=== PATIENT | female | born 1950 | race Caucasian/White ===

== ENCOUNTER → 2020-07-01 11:14 | Outpatient (CLI) | payer MEDICARE, OTHER, SELFPAY ==
[2020-07-03 12:09] LABS: COVID19 Sendout Not Detected (Not Detect)
== END ==
PROVIDERS: Family Provider Internal Medicine; PCP Internal Medicine; Visit Provider Physician Assistant
DX: Z11.59 Encounter for screening for other viral diseases (principal)
CPT/HCPCS: 87635

== ENCOUNTER 2020-07-04 11:28 | Day surgery (SDC) | payer MEDICARE, OTHER, SELFPAY ==
[2020-07-04] VITALS (7 sets, daily range): BP systolic 99–124; BP diastolic 66–77; PULSE 64–82; RESP 10–16; TEMP 36.3–36.4; O2SAT 92–100; BMI 27.8
--- NOTE | 2020-07-04 | PATH_ITS ---
[facility] Accession Number: [id number] . 01 Material submitted: . gastrointestinal site - GASTRIC . 01 Clinical history: . A: RULE OUT HP GASTRIC BIOPSY . 02 Diagnosis: Stomach, Biopsies: Antral and body mucosa with no diagnostic abnormality. No evidence of Helicobacter organisms on H/E stain. Negative for intestinal metaplasia. Negative for dysplasia and malignancy. [facility] 07/06/2020 1049 Local . 02 Electronically signed: . Arnav Boss MD, PhD, Pathologist NPI- [id number] . 01 Gross description: . Received in formalin, labeled rule out HP gastric biopsy, and consists of two rosas fragments of soft tissue measuring 0.5 x 0.3 x 0.2 cm in aggregate. The specimen is entirely submitted in cassette A1. ([id number]) /[facility] 07/05/2020 1059 Local . 02 Pathologist provided ICD-10: R10.13 . 02 CPT . 734876 Performed at: 01 [facility] [address], [place], [place] [id number] MD Da Woodard MD Phone: [phone] Performed at: 02 [facility] [address] [place], [place] [id number] MD Tanya Andrade MD Phone: [phone]
[2020-07-04] MEDS: SODIUM CHLORIDE 0.9% 1,000 ML 42 ML IV (12:03)
--- NOTE | 2020-07-04 12:48 | PM.HP.1 ---
History of Present Illness History of Present Illness Date Patient Seen: 07/04/20 Chief complaint: COLONOSCOPY & EGD Narrative: Dysphagia and colorectal cancer screening Patient History Family & Social History Social History: household members spouse Tobacco & Substance use: Smoking Status Never smoker alcohol intake current alcohol intake frequency a few times a week Substance Use Type does not use Meds Home Medications and Allergies Home Medications Medication Instructions Recorded Confirmed Type aspirin #0 09/13/12 08/10/18 History Flaxseed Oil 1,000 mg PO Q DAY #0 07/12/13 History VITAMIN B COMPLEX 1 cap PO QDAY #0 cap 07/12/13 History omega-3 acid ethyl esters [Lovaza] 1 gm PO Q DAY #0 07/12/13 History pravastatin [Pravachol] 40 mg PO HS #0 tab 07/12/13 07/04/20 History Allergies Allergy/AdvReac Type Severity Reaction Status Date / Time No Known Allergies Allergy Uncoded 07/01/20 11:13 Exam Vital Signs (past 8 hours): - 07/04/20 11:46 Temperature 97.5 F L Pulse Rate 81 Respiratory Rate 16 Blood Pressure 114/71 Pulse Oximetry 99 Oxygen Delivery Method Room Air Narrative Exam Narrative: Oropharynx free of lesions Chest clear to auscultation percussion Cardiac exam reveals no S3 or murmur Assessment & Plan Assessment & Plan narrative: Dysphagia and need for colorectal cancer screening. EGD and colonoscopy to be performed. Risks, benefits, alternatives have been explained.
--- NOTE | 2020-07-04 12:49 | PM.OP.ENDO ---
Operative Date/Time/Diagnoses Date of procedure: 07/04/20 Pre-op diagnosis: See indication and findings Procedure & Clinicians Study performed: EGD and colonoscopy Same procedure as scheduled: Yes Indications: Dysphagia and need for colorectal cancer screening Surgeon: Aicha Ye Procedure Notes Procedure in detail: After informed consent was obtained the patient was placed in the left lateral decubitus position. The video upper scope was placed into the oropharynx with the patient's also called in the esophagus. The esophagus stomach and duodenum duodenum were carefully examined. On withdrawal, retroflexed view the GE junction was performed. The scope was removed. The patient tolerated procedure well. The colonoscope was then substituted and the patient turned. The scope was inserted into the rectum slowly advanced to cecum. Preparation was good. On slow withdrawal mucosa was carefully examined. The scope was removed. The patient tolerated procedure well. Blood loss none Complications none Sedation Total sedation time 27 minutes Versed 6 mg fentanyl 200 micro g Findings EGD 1. Distal esophagus with 8 mm ulceration on 1 aspect LA classification B. this was on top of a fairly wide-open Schatzki's ring. 2. Multiple small gastric erosions in the antrum biopsies taken to rule out Helicobacter 3. Normal duodenal bulb and sweep Colonoscopy 1. Normal colonoscopy to cecum For her dysphagia I would expect that her symptoms would improve his she was able to heal this ulceration. Therefore we will send in prescription of a proton pump inhibitor to her pharmacy to take once daily and see how she does over the next 2 months. She should have a telehealth return visit at that time. Colonoscopy should be repeated in 10 years
[2020-07-04] MEDS: fentaNYL 250 MCG/5 ML INJ IV (13:07)
[2020-07-04] MEDS: MIDAZOLAM 5 MG/5 ML VIAL IV (13:11)
== END 2020-07-04 14:10 | disposition home or self-care (01) ==
PROVIDERS: Family Provider Internal Medicine; PCP Internal Medicine; Referring Provider Internal Medicine; Visit Provider Internal Medicine Gastroenterology
PROC: 0DJ08ZZ Inspection of Upper Intestinal Tract, Via Natural or Artificial Opening Endoscopic (ICD-10-PCS; CPT 43235; principal; 2020-07-04 13:00)
PROC: 0DJD8ZZ Inspection of Lower Intestinal Tract, Via Natural or Artificial Opening Endoscopic (ICD-10-PCS; CPT 45378; 2020-07-04 13:00)
DX: Z12.11 Encounter for screening for malignant neoplasm of colon (principal); R13.10 Dysphagia, unspecified; K75.81 Nonalcoholic steatohepatitis (NASH); Z86.73 Personal history of transient ischemic attack (TIA), and cerebral infarction without residual deficits; Z85.72 Personal history of non-Hodgkin lymphomas; K22.10 Ulcer of esophagus without bleeding; K22.2 Esophageal obstruction
CPT/HCPCS: 43239; G0121; J2250; J3010

== ENCOUNTER → 2020-09-18 19:10 | Outpatient (ROUT) | payer MEDICARE, OTHER, SELFPAY ==
[2020-09-18 19:25] LABS: Add Manual Diff / Slide Review NO; Basophils Absolute Auto 0 /uL (0-100); Basophils Percent Auto 0.4 % (0-2); Eosinophils Absolute Auto 100 /uL (0-450); Eosinophils Percent Auto 1.6 % (2-4); Hemoglobin 14.7 g/dL (12.0-16.0); Lymphocytes Absolute Auto 2000 /uL (1100-4500); Lymphocytes Percent Auto 34.9 % (25-40); Mean Corpuscular HGB Conc 34.1 % (30-36); Mean Corpuscular Hemoglobin 29.7 PG (26-34); Mean Corpuscular Volume 86.8 fL (80-100); Monocytes Absolute Auto 300 /uL (0-900); Monocytes Percent Auto 5.9 % (3-14); Neutrophils Absolute Auto 3200 /uL (1500-7000); Neutrophils Percent Auto 57.2 % (50-75); Platelet Count 207 X10^3/uL (150-400); Red Blood Cell Count 4.95 X10^6/uL (4.0-5.2); Red Cell Distribution Width 13.3 % (11.6-14.8); White Blood Cell Count 5.6 X10^3/uL (4.5-11.0)
[2020-09-18 19:32] LABS: Alanine Aminotransferase 60 IU/L (<35); Albumin 4.7 g/dL (3.5-5.0); Albumin Globulin Ratio 1.6 (1.0-2.8); Alkaline Phosphatase 106 U/L (38-126); Aspartate Aminotransferase 36 IU/L (14-36); BUN Creatinine Ratio 18.9 (6-22); Bilirubin Total 1.1 mg/dL (0.2-1.3); Blood Urea Nitrogen 20 mg/dL (7-17); Calcium 10.4 mg/dL (8.4-10.2); Carbon Dioxide 32 mmol/L (22-32); Chloride 105 mmol/L (98-107); Cholesterol 237 mg/dL (140-199); Estimated Glomerular Filt Rate 51.4 mL/min (>60); Glucose 91 mg/dL (80-110); HDL Cholesterol 63 mg/dL (40-60); HEMOLYSIS < 15 (0-50); LDL Cholesterol Calculated 128 mg/dL (<100); Lactate Dehydrogenase 412 U/L (313-618); Potassium 4.6 mmol/L (3.4-5.1); Sodium 142 mmol/L (137-145); Total Protein 7.7 g/dL (6.3-8.2); Triglycerides 229 mg/dL (35-150)
[2020-09-18 20:03] LABS: TSH w/ Reflex to FT4 3.11 uIU/mL (0.47-4.68)
== END ==
PROVIDERS: Family Provider Internal Medicine; PCP Internal Medicine; Visit Provider Internal Medicine
DX: E03.9 Hypothyroidism, unspecified (principal); C85.19 Unspecified B-cell lymphoma, extranodal and solid organ sites; E78.2 Mixed hyperlipidemia
CPT/HCPCS: 80053; 80061; 83615; 84443; 85025

== ENCOUNTER → 2021-03-19 18:45 | Outpatient (ROUT) | payer MEDICARE, OTHER, SELFPAY ==
[2021-03-19 19:32] LABS: Aspartate Aminotransferase 41 IU/L (14-36); BUN Creatinine Ratio 21.9 (6-22); Blood Urea Nitrogen 23 mg/dL (7-17); Calcium 10.3 mg/dL (8.4-10.2); Carbon Dioxide 25 mmol/L (22-32); Chloride 106 mmol/L (98-107); Cholesterol 234 mg/dL (140-199); Estimated Glomerular Filt Rate 51.8 mL/min (>60); Glucose 96 mg/dL (80-110); HDL Cholesterol 82 mg/dL (40-60); HEMOLYSIS 19 (0-50); LDL Cholesterol Calculated 118 mg/dL (<100); Potassium 4.5 mmol/L (3.4-5.1); Sodium 142 mmol/L (137-145); Triglycerides 169 mg/dL (35-150)
[2021-03-19 20:04] LABS: TSH w/ Reflex to FT4 2.85 uIU/mL (0.47-4.68)
== END ==
PROVIDERS: Family Provider Internal Medicine; PCP Internal Medicine; Visit Provider Internal Medicine
DX: N18.30 Chronic kidney disease, stage 3 unspecified (principal); E78.2 Mixed hyperlipidemia; E03.9 Hypothyroidism, unspecified; C85.19 Unspecified B-cell lymphoma, extranodal and solid organ sites
CPT/HCPCS: 80048; 80061; 84443; 84450

== ENCOUNTER → 2021-10-01 14:46 | Outpatient (CLI) | payer MEDICARE, OTHER, SELFPAY ==
--- NOTE | 2021-10-01 14:48 | DI.RAD.S_ITS ---
PROCEDURE: XR DEXA AXIAL SKELETON INDICATIONS: Encounter for screening for osteoporosis COMPARISON: None. FINDINGS: This blank DEXA report has been sent in error by the PACS system. The correct and complete report will be forthcoming in 1-2 days. Thank you for your patience and understanding. Dictated by: Twyla Paiz MD, PhD on 10/01/2021 at 17:17 Approved by: Twyla Paiz MD, PhD on 10/01/2021 at 17:17
== END ==
PROVIDERS: Family Provider Internal Medicine; PCP Internal Medicine; Referring Provider Internal Medicine; Visit Provider Internal Medicine
DX: Z13.820 Encounter for screening for osteoporosis; M81.0 Age-related osteoporosis without current pathological fracture; Z78.0 Asymptomatic menopausal state
CPT/HCPCS: 77080

== ENCOUNTER → 2021-12-18 12:27 | Outpatient (CLI) | payer MEDICARE, OTHER, SELFPAY ==
[2021-12-18 13:07] LABS: COVID19 -Nasal RAPID Negative (Negative)
== END ==
PROVIDERS: Family Provider Internal Medicine; PCP Internal Medicine; Visit Provider Family Medicine Sleep Medicine
DX: Z20.822 Contact with and (suspected) exposure to COVID-19 (principal)
CPT/HCPCS: 87635

== ENCOUNTER 2021-12-18 12:55 | Day surgery (SDC) | payer MEDICARE, OTHER, SELFPAY ==
[2021-12-18 13:20] VITALS: BP 149/90; PULSE 60; RESP 12; TEMP 36.4; O2SAT 99; BMI 28.1
[2021-12-18] MEDS: SODIUM CHLORIDE 0.9% 1,000 ML 84 ML IV (13:43)
--- NOTE | 2021-12-18 13:50 | PM.PREOP ---
Pre-operative Note COVID-19 COVID-19 status: Negative Result date/Date tested (Pos, Neg/Pending): 12/18/21 Criteria for continued procedure: Expected advancement of disease process Interval Note History & Physical reviewed/Exam performed by Physician: Yes Changes to H&P: No ASA Class (for procedural sedation): II
--- NOTE | 2021-12-18 13:51 | PM.OP.EGD ---
Operative Date/Time/Diagnoses Date of procedure: 12/18/21 Pre-op diagnosis: See indication and findings Procedure & Clinicians Study performed: EGD Indications: Longstanding heartburn on medication with resolved symptoms need to check for complete healing of esophageal ulcer which if not healed will require significant changes in medication. Surgeon: Aicha Ye Procedure Notes Procedure in detail: After informed consent was obtained the patient was placed in left lateral decubitus position. The video upper scope placed into the oropharynx and with the patient's help swallowed into the esophagus. The esophagus stomach and duodenum were carefully examined. On withdrawal retroflexed view the GE junction was performed. The scope was removed. The patient tolerated procedure well. Blood loss none Complications none Sedation mac Findings 1. Completely normal esophagus with complete healing of the ulceration 2. Minimal patchy erythema in the pre-pyloric position previous biopsies negative 3. Normal duodenal bulb and sweep I think it is quite likely that Donna may need to be maintained on some degree of acid suppression but for now she can stop her Protonix and she can try going back on aspirin. At the slightest increase in heartburn symptoms however she should go back on her Protonix catatonic episodes he
[2021-12-18 14:41] VITALS: BP 128/89; PULSE 71; RESP 16; TEMP 36.1; O2SAT 96
[2021-12-18 14:46] VITALS: BP 117/78; PULSE 67; RESP 14; O2SAT 96
[2021-12-18 14:51] VITALS: BP 109/70; PULSE 74; RESP 16; O2SAT 98
[2021-12-18 14:56] VITALS: BP 133/83; PULSE 82; RESP 16; O2SAT 98
[2021-12-18 15:02] VITALS: BP 135/90; PULSE 66; RESP 16; O2SAT 98
== END 2021-12-18 15:24 | disposition home or self-care (01) ==
PROVIDERS: Family Provider Internal Medicine; PCP Internal Medicine; Referring Provider Internal Medicine Gastroenterology; Visit Provider Internal Medicine Gastroenterology
PROC: 0DJ08ZZ Inspection of Upper Intestinal Tract, Via Natural or Artificial Opening Endoscopic (ICD-10-PCS; CPT 43235; principal; 2021-12-18 14:30)
DX: R12 Heartburn (principal); Z20.822 Contact with and (suspected) exposure to COVID-19
CPT/HCPCS: 43235; 87635; C9803; J2704

== ENCOUNTER → 2022-02-25 13:35 | Outpatient (CLI) | payer MEDICARE, OTHER, SELFPAY ==
--- NOTE | 2022-02-25 | DI.US.S_ITS ---
PROCEDURE: US THYROID INDICATIONS: LOCALIZED SWELLING; MASS AND LUMP TECHNIQUE: Real-time scanning was performed of the thyroid gland, with image documentation. COMPARISON: [facility], US, THYROID, 02/19/2016, 16:26. FINDINGS: Right: Thyroid lobe measures 4.2 x 1.8 x 1.6 cm, and is homogeneous in echotexture. Left: Thyroid lobe measures 3.7 x 1.6 x 1.4 cm, and is homogenous in echotexture. Isthmus: 4.4 mm thick. Nodule number: 1 Location: Right superior Size: 0.9 x 0.6 x 0.5 cm; previously 0.7 x 0.6 x 0.5. Composition: Solid Echogenicity: Isoechoic Shape: wider than tall. Margins: Smooth Echogenic foci: Peripheral calcification Total points: 4 ACR TI-RADS category: 4 IMPRESSION: 1. Small right thyroid nodule with rim calcification, minimally increased in size. Recommend continue ultrasound follow-up. See enclosed follow-up recommendation. ACR TI-RADS definitions and recommendations: TI-RADS 1 (benign): 0 points. FNA not needed. TI-RADS 2 (not suspicious): 2 points. FNA not needed. TI-RADS 3 (mildly suspicious): 3 points. * FNA if 2.5 cm or larger, follow up if 1.5 cm or larger (at 1, 3, and 5 years). TI-RADS 4 (moderately suspicious): 4-6 points. * FNA if 1.5 cm or larger, follow up if 1 cm or larger (at 1, 2, 3, and 5 years). TI-RADS 5 (highly suspicious): 7 points or more. * FNA if 1 cm or larger, follow up if 0.5 cm or larger (every year for 5 years). Dictated by: Zhou Sotelo M.D. on 02/25/2022 at 17:11 Approved by: Zhou Sotelo M.D. on 02/25/2022 at 17:15
== END ==
PROVIDERS: Family Provider Internal Medicine; PCP Internal Medicine; Referring Provider Internal Medicine Hematology & Oncology; Visit Provider Internal Medicine Hematology & Oncology
DX: E04.1 Nontoxic single thyroid nodule (principal)
CPT/HCPCS: 76536

== ENCOUNTER → 2022-06-02 15:16 | Outpatient (CLI) | payer MEDICARE, OTHER, SELFPAY ==
[2022-06-02 16:19] LABS: Hematocrit 39.5 % (36-46); Hemoglobin 13.6 g/dL (12.0-16.0); Mean Corpuscular HGB Conc 34.5 % (30-36); Mean Corpuscular Hemoglobin 29.9 PG (26-34); Mean Corpuscular Volume 86.4 fL (80-100); Platelet Count 180 X10^3/uL (150-400); Red Blood Cell Count 4.57 X10^6/uL (4.0-5.2); White Blood Cell Count 3.9 X10^3/uL (4.5-11.0)
[2022-06-02 16:45] LABS: Alanine Aminotransferase 42 IU/L (<35); Albumin 4.4 g/dL (3.5-5.0); Albumin Globulin Ratio 1.8 (1.0-2.8); Alkaline Phosphatase 80 U/L (38-126); Aspartate Aminotransferase 41 IU/L (14-36); BUN Creatinine Ratio 14.9 (6-22); Bilirubin Total 1.4 mg/dL (0.2-1.3); Blood Urea Nitrogen 17 mg/dL (7-17); Calcium 9.5 mg/dL (8.4-10.2); Carbon Dioxide 28 mmol/L (22-32); Chloride 107 mmol/L (98-107); Cholesterol 182 mg/dL (140-199); Estimated Glomerular Filt Rate 51 mL/min (>60); Globulin 2.5 g/dL (1.7-4.1); Glucose 92 mg/dL (80-110); HDL Cholesterol 65 mg/dL (40-60); HEMOLYSIS < 15 (0-50); LDL Cholesterol Calculated 97 mg/dL (<100); Potassium 4.7 mmol/L (3.4-5.1); Sodium 139 mmol/L (137-145); Total Protein 6.9 g/dL (6.3-8.2); Triglycerides 98 mg/dL (35-150)
[2022-06-02 17:09] LABS: TSH w/ Reflex to FT4 1.61 uIU/mL (0.47-4.68)
[2022-06-03 06:29] LABS: Calcium 9.6 mg/dL (8.7-10.3); Parathyroid Hormone, Intact 53 pg/mL (15-65)
[2022-06-12 17:38] LABS: Vitamin D 25 Hydroxy (D3) 35.3 ng/mL (30.0-100.0)
== END ==
PROVIDERS: Family Provider Internal Medicine; PCP Internal Medicine; Referring Provider Internal Medicine; Visit Provider Internal Medicine
DX: I67.9 Cerebrovascular disease, unspecified (principal); N18.31 Chronic kidney disease, stage 3a; M81.0 Age-related osteoporosis without current pathological fracture
CPT/HCPCS: 36415; 80053; 80061; 82306; 82310; 83970; 84443; 85027

== ENCOUNTER → 2023-02-13 12:47 | Outpatient (CLI) | payer MEDICARE, OTHER, SELFPAY ==
[2023-02-13 14:23] LABS: Hematocrit 43.6 % (36-46); Hemoglobin 14.8 g/dL (12.0-16.0); Mean Corpuscular Hemoglobin 29.3 PG (26-34); Mean Corpuscular Volume 86.1 fL (80-100); Platelet Count 209 X10^3/uL (150-400); Red Blood Cell Count 5.06 X10^6/uL (4.0-5.2); Red Cell Distribution Width 13.4 % (11.6-14.8); White Blood Cell Count 4.8 X10^3/uL (4.5-11.0)
[2023-02-13 14:48] LABS: Alanine Aminotransferase 69 IU/L (<35); Albumin 4.7 g/dL (3.5-5.0); Albumin Globulin Ratio 1.4 (1.0-2.8); Alkaline Phosphatase 118 U/L (38-126); Aspartate Aminotransferase 44 IU/L (14-36); BUN Creatinine Ratio 17.6 (6-22); Bilirubin Total 1.3 mg/dL (0.2-1.3); Blood Urea Nitrogen 18 mg/dL (7-17); Calcium 10.1 mg/dL (8.4-10.2); Carbon Dioxide 30 mmol/L (22-32); Chloride 103 mmol/L (98-107); Cholesterol 242 mg/dL (140-199); Estimated Glomerular Filt Rate 58 mL/min (>60); Globulin 3.4 g/dL (1.7-4.1); Glucose 80 mg/dL (80-110); HDL Cholesterol 57 mg/dL (40-60); HEMOLYSIS < 15 (0-50); LDL Cholesterol Calculated 158 mg/dL (<100); Potassium 4.4 mmol/L (3.4-5.1); Sodium 140 mmol/L (137-145); Total Protein 8.1 g/dL (6.3-8.2); Triglycerides 134 mg/dL (35-150)
[2023-02-13 15:17] LABS: TSH w/ Reflex to FT4 3.07 uIU/mL (0.47-4.68)
== END ==
PROVIDERS: Family Provider Internal Medicine; PCP Internal Medicine; Referring Provider Internal Medicine; Visit Provider Internal Medicine
DX: E78.2 Mixed hyperlipidemia (principal); I67.9 Cerebrovascular disease, unspecified
CPT/HCPCS: 36415; 80053; 80061; 84443; 85027

== ENCOUNTER → 2023-03-04 11:21 | Outpatient (CLI) | payer MEDICARE, OTHER, SELFPAY ==
--- NOTE | 2023-03-04 11:23 | DI.US.S_ITS ---
PROCEDURE: US THYROID INDICATIONS: thyroid nodule TECHNIQUE: Real-time scanning was performed of the thyroid gland, with image documentation. COMPARISON: [facility], US, US THYROID, 02/25/2022, 14:44. FINDINGS: Right: Thyroid lobe measures 4.3 x 1.6 x 1.7 cm, and is homogeneous in echotexture. Left: Thyroid lobe measures 4.2 x 1.6 x 1.3 cm, and is homogenous in echotexture. Isthmus: 4 mm thick. Nodule number: 1 Location: Right lobe mid Size: 0.7 x 0.7 x 0.5 cm. Previously 0.9 x 0.6 x 0.5 cm Composition: Solid Echogenicity: Hypoechoic Shape: wider than tall. Margins: Smooth Echogenic foci: Peripheral calcification Total points: 6 ACR TI-RADS category: 4 Sonographic evaluation was performed of the patient indicated area of difficulty swallowing/pressure, at the left inferior neck superior to the clavicle. In this region there is a rounded structure measuring 0.9 x 2.0 x 1.4 cm, with appearance of an echogenic periphery and hypoechoic center. On some images it appears to have a reniform configuration. IMPRESSION: 1. Previously demonstrated sub cm nodule in the right lobe of the thyroid gland is not significantly changed and does not meet TI-RADS criteria for FNA or imaging follow-up. 2. Sonographic evaluation was performed of the patient indicated area of difficulty swallowing/pressure, at the left inferior neck superior to the clavicle. In this region there is a rounded structure measuring 0.9 x 2.0 x 1.4 cm, with appearance of an echogenic periphery and hypoechoic center. On some images it appears to have a reniform configuration. These are nonspecific findings. This structure could potentially represent an abnormal lymph node or other etiology or artifact. If additional imaging is desired CT of the neck may be helpful. ACR TI-RADS definitions and recommendations: TI-RADS 1 (benign): 0 points. FNA not needed. TI-RADS 2 (not suspicious): 2 points. FNA not needed. TI-RADS 3 (mildly suspicious): 3 points. * FNA if 2.5 cm or larger, follow up if 1.5 cm or larger (at 1, 3, and 5 years). TI-RADS 4 (moderately suspicious): 4-6 points. * FNA if 1.5 cm or larger, follow up if 1 cm or larger (at 1, 2, 3, and 5 years). TI-RADS 5 (highly suspicious): 7 points or more. * FNA if 1 cm or larger, follow up if 0.5 cm or larger (every year for 5 years). Dictated by: Imer Boo M.D. on 03/04/2023 at 16:35 Approved by: Imer Boo M.D. on 03/04/2023 at 16:42
== END ==
PROVIDERS: Family Provider Internal Medicine; PCP Internal Medicine; Referring Provider Internal Medicine; Visit Provider Internal Medicine
DX: E04.1 Nontoxic single thyroid nodule (principal)
CPT/HCPCS: 76536

== ENCOUNTER → 2024-02-08 11:02 | Outpatient (CLI) | payer MEDICARE, OTHER, SELFPAY ==
[2024-02-08 12:31] LABS: Add Manual Diff / Slide Review NO; Basophils Absolute Auto 0 /uL (0-100); Basophils Percent Auto 0.4 % (0-2); Eosinophils Absolute Auto 100 /uL (0-450); Hematocrit 43.1 % (36-46); Hemoglobin 14.3 g/dL (12.0-16.0); Lymphocytes Absolute Auto 1600 /uL (1100-4500); Lymphocytes Percent Auto 31.5 % (25-40); Mean Corpuscular HGB Conc 33.2 % (30-36); Mean Corpuscular Hemoglobin 29.4 PG (26-34); Mean Corpuscular Volume 88.4 fL (80-100); Monocytes Absolute Auto 500 /uL (0-900); Monocytes Percent Auto 10.2 % (3-14); Neutrophils Absolute Auto 2900 /uL (1500-7000); Neutrophils Percent Auto 56.9 % (50-75); Platelet Count 171 X10^3/uL (150-400); Red Blood Cell Count 4.87 X10^6/uL (4.0-5.2); Red Cell Distribution Width 13.7 % (11.6-14.8); White Blood Cell Count 5.2 X10^3/uL (4.5-11.0)
[2024-02-08 13:37] LABS: Alanine Aminotransferase 80 IU/L (<35); Albumin 4.8 g/dL (3.5-5.0); Albumin Globulin Ratio 1.5 (1.0-2.8); Alkaline Phosphatase 102 U/L (38-126); Aspartate Aminotransferase 50 IU/L (14-36); BUN Creatinine Ratio 16.7 (6-22); Bilirubin Total 1.1 mg/dL (0.2-1.3); Blood Urea Nitrogen 19 mg/dL (7-17); Calcium 9.4 mg/dL (8.4-10.2); Carbon Dioxide 27 mmol/L (22-32); Chloride 106 mmol/L (98-107); Cholesterol 222 mg/dL (140-199); Estimated Glomerular Filt Rate 51 mL/min (>60); Globulin 3.2 g/dL (1.7-4.1); Glucose 83 mg/dL (80-110); HDL Cholesterol 73 mg/dL (40-60); HEMOLYSIS < 15 (0-50); LDL Cholesterol Calculated 114 mg/dL (<100); Potassium 3.8 mmol/L (3.4-5.1); Sodium 140 mmol/L (137-145); Triglycerides 173 mg/dL (35-150)
[2024-02-08 14:02] LABS: Thyroid Stimulating Hormone 3.45 uIU/mL (0.47-4.68)
== END ==
PROVIDERS: Family Provider Internal Medicine; PCP Internal Medicine; Referring Provider Internal Medicine; Visit Provider Internal Medicine
DX: K75.81 Nonalcoholic steatohepatitis (NASH) (principal); E78.2 Mixed hyperlipidemia; Z20.9 Contact with and (suspected) exposure to unspecified communicable disease
CPT/HCPCS: 36415; 80053; 80061; 84443; 85025

== ENCOUNTER → 2024-04-07 12:18 | Outpatient (CLI) | payer MEDICARE, OTHER, SELFPAY ==
--- NOTE | 2024-04-07 12:23 | DI.RAD.S_ITS ---
PROCEDURE: XR DEXA AXIAL SKELETON INDICATIONS: ROUTINE SCREENING/OSTEOPOROSIS SCREENING COMPARISON: [facility], [place], XR DEXA AXIAL SKELETON, 10/01/2021, 15:15. FINDINGS: Lumbar Spine: Bone mineral density 0.899 g/cm2, T score -1.3. Left Hip: Bone mineral density 0.834 g/cm2, T score -0.9. Left Femoral Neck: Bone mineral density 0.608 g/cm2, T score -2.2. Right Hip: Bone mineral density 0.707 g/cm2, T score -1.9. Right Femoral Neck: Bone mineral density 0.569 g/cm2, T score -2.5. Fracture Risk Calculation (when applicable): 10-year fracture risk of a major osteoporotic fracture 15 % and of a hip fracture 4.3%. (T score greater or equal to -1.0 to: NORMAL) (T score from -1.1 to -2.4: OSTEOPENIA) (T score less than or equal to -2.5: OSTEOPOROSIS) IMPRESSION: Osteoporosis. Follow-up guidelines as follows: Osteoporosis: Consider a repeat DEXA and Vertebral Fracture Assessment (VFA) exam in 2 years or sooner if medically necessary, to reassess this patient's status. Osteopenia: Consider a repeat DEXA in 2-3 years to reassess this patient's status, or if there is a new clinical indication. Normal: Consider a repeat DEXA in 5 years or sooner, or if there is a new clinical indication. All treatment decisions require clinical judgment and consideration of individual patient factors, including patient preferences, comorbidities, previous drug use, risk factors not captured in the FRAX model (e.g., frailty, falls, vitamin D deficiency, increased bone turnover, interval significant decline in bone density ) and possible under- or over-estimation of fracture risk by FRAX. In addition, the NOF Guide recommends that FDA-approved medical therapies be considered in postmenopausal women and men age >= 50 years with a: * Hip or vertebral (clinical or morphometric) fracture * T-score of <=-2.5 at the spine or hip * Ten-year fracture probability by FRAX of >= 3% for hip fracture or >=20% for major osteoporotic fracture. People with diagnosed cases of osteoporosis or at high risk for fracture should have regular bone mineral density tests. For patients eligible for Medicare, routine testing is allowed once every 2 years. The testing frequency can be increased to one year for patients who have rapidly progressing disease, those who are receiving or discontinuing medical therapy to restore bone mass, or have additional risk factors. Dictated by: Ishmael Mahoney M.D. on 04/07/2024 at 17:41 Approved by: Ishmael Mahoney M.D. on 04/07/2024 at 17:42
--- NOTE | 2024-04-07 12:24 | DI.MG.S_ITS ---
BILATERAL DIGITAL SCREENING MAMMOGRAM 3D/2D WITH CAD: 04/07/2024 CLINICAL: Routine screening. Family history of breast cancer. Comparison is made to exams dated: 04/11/2021 mammogram, 08/23/2019 mammogram - Outside facility, and 08/03/2012 mammogram - [facility]. There are scattered areas of fibroglandular density in both breasts (category b / 25%-50% glandular tissue). Current study was also evaluated with a Computer Aided Detection (CAD) system. No significant masses, calcifications, or other findings are seen in either breast. There has been no significant interval change. IMPRESSION: NEGATIVE There is no mammographic evidence of malignancy. A 1 year screening mammogram is recommended. Based on the Tyrer Cuzick model (a risk assessment model) the patient's lifetime risk is 9.1% and her 10 year risk is 7.5%. According to the ACR, ACS, and NCCN guidelines, an annual breast MRI exam along with mammogram is recommended if the patient's lifetime risk is 20% or greater. This exam was interpreted at Station ID: [id number]. NOTE: For mammograms, a report in lay terms will be sent to the patient. Approximately 15% of breast malignancies will not be visualized mammographically. In the management of a palpable breast mass, a negative mammogram must not discourage biopsy of a clinically suspicious lesion. Electronically Signed By: Dillon bowen/pretty:04/07/2024 14:59:22 letter sent: Normal Exam ACR BI-RADS Category 1: Negative [id number]
== END ==
PROVIDERS: Family Provider Internal Medicine; PCP Internal Medicine; Referring Provider Internal Medicine; Visit Provider Internal Medicine
DX: Z80.3 Family history of malignant neoplasm of breast (principal); Z12.31 Encounter for screening mammogram for malignant neoplasm of breast; R92.323 Mammographic fibroglandular density, bilateral breasts; M81.0 Age-related osteoporosis without current pathological fracture
CPT/HCPCS: 77063; 77067; 77080

== ENCOUNTER → 2024-05-24 17:07 | Outpatient (CLI) | payer MEDICARE, OTHER, SELFPAY ==
--- NOTE | 2024-05-24 17:09 | DI.RAD.S_ITS ---
PROCEDURE: XR CHEST 2V INDICATIONS: Chronic Cough TECHNIQUE: 2 views of the chest were acquired. COMPARISON: None. FINDINGS: Surgical changes and devices: None. Lungs and pleura: Lungs are clear. No pleural effusions or pneumothorax. Mediastinum: Mediastinal contours are normal. Heart size is normal. Bones and chest wall: No suspicious bony abnormalities. Soft tissues appear unremarkable. IMPRESSION: No acute cardiopulmonary abnormality is seen. Dictated by: Adam Santiago M.D. on 05/24/2024 at 17:26 Approved by: Adam Santiago M.D. on 05/24/2024 at 17:26
== END ==
PROVIDERS: Family Provider Internal Medicine; PCP Internal Medicine; Referring Provider Physician Assistant Surgical; Visit Provider Physician Assistant Surgical
DX: R05.9 Cough, unspecified (principal)
CPT/HCPCS: 71046

== ENCOUNTER 2024-11-21 10:34 | Day surgery (SDC) | payer MEDICARE, OTHER, SELFPAY ==
--- NOTE | 2024-11-21 | PATH_ITS ---
[facility] Accession Number: [id number] No. of containers..02 Tissue . 01 Material submitted: . PART A: gastrointestinal site - STOMACH PART B: esophagus - ESOPHAGUS . 01 Clinical history: . A: R/O HP B: R/O EOE . 01 Diagnosis: Part A: STOMACH: Gastric mucosa with minimal chronic inflammation. No Helicobacter organisms identified. No intestinal metaplasia, dysplasia, or malignancy identified. . Part B: ESOPHAGUS: Squamous mucosa with mild reactive changes suggestive of reflux. No evidence of eosinophilic esophagitis. [facility] [email or web address]] 11/24/20241616 Local . 01 Electronically signed: . Da Woodard MD, Pathologist NPI- [id number] . 01 Gross description: . A. Received in formalin with two patient identifiers and stomach polyp, are two rosas soft tissue fragments, 0.2-0.3 cm in greatest dimension, submitted in A1. . B. Received in formalin with two patient identifiers and esophagus, are two rosas soft tissue fragments, 0.3-0.5 cm in greatest dimension, submitted in B1. ([id number]) /[facility] 11/24/2024 1617 Local . 01 Microscopic: . Part A: STOMACH: An immunohistochemical stain was performed to evaluate for Helicobacter organisms and is negative. The control stains appropriately. * This test was developed and the performance characteristics were validated by [employer]. It has not been cleared or approved by the Food and Drug Administration. . 01 Pathologist provided ICD-10: K21.00, K29.30 . 01 CPT . 628487, 094973, H97986 Specimen Comment: A courtesy copy of this report has been sent to [phone] Performed at: [address] [place] [address] [address], [place], [place] [id number] MD Da Woodard MD Phone: [phone]
[2024-11-21 11:11] VITALS: BP 124/84; PULSE 87; RESP 16; TEMP 36.6; O2SAT 98
[2024-11-21] MEDS: SODIUM CHLORIDE 0.9% 1,000 ML 84 ML IV (11:14)
--- NOTE | 2024-11-21 11:14 | P.HP_ITS ---
History of Present Illness History of Present Illness Date Patient Seen: 11/21/24 Chief complaint: EGD w/poss bx Narrative: Worsening GE reflux and occasional substernal dysphagia. Need for EGD [facility] Medical History Ocular migraine Rib pain (~05/2021) Measles Tinnitus Ovarian cyst (~1979) Gastric ulcer (~2020) Esophageal ring (~2020) Age-related osteoporosis without current pathological fracture Stage 3a chronic kidney disease (CKD) Thyroid nodule (~2020) GERD without esophagitis Unspecified b-cell lymphoma, extranodal and solid organ sites (~2012) Mixed hyperlipidemia Cerebrovascular disease GERD (gastroesophageal reflux disease) TIA (transient ischemic attack) (~2011) ELLIS (nonalcoholic steatohepatitis) (~2012) Surgical History Anesthesia History of appendectomy (~1962) Family History Father History of heart disease Brother History of heart attack Social History household members: spouse Smoking Status: Never smoker alcohol intake: current Meds Home Medications and Allergies Home Medications Medication Instructions Recorded Confirmed Type aspirin 81 mg tablet,delayed 81 mg PO DAILY 06/02/22 11/21/24 History release rosuvastatin 5 mg tablet 5 mg PO DAILY #90 tabs 08/18/24 11/21/24 Rx Allergies Allergy/AdvReac Type Severity Reaction Status Date / Time No Known Drug Allergies Allergy Verified 06/02/24 13:57 Exam Vital Signs (past 8 hours): - 11/21/24 11:11 Temperature 97.8 F Pulse Rate 87 Respiratory Rate 16 Blood Pressure 124/84 Pulse Oximetry 98 Oxygen Delivery Method Room Air Oxygen Delivery Method Room Air Narrative Exam Narrative: Oropharynx free of lesions Chest clear to auscultation percussion Cardiac exam reveals no S3 or murmur Assessment & Plan Assessment & Plan narrative: Dysphagia and worsening GE reflux rule out mechanical lesion. Risks, benefits, alternatives have been explained Time-Based Coding :: [TOTAL MINUTES] spent with patient and on the chart (including review of chart, obtaining history, exam, reviewing outside data, placing orders, documenting exam and treatment plan, and counseling patient) on [DATE].
--- NOTE | 2024-11-21 11:36 | P.OP.EGD_ITS ---
Operative Date/Time/Diagnoses Date of procedure: 11/21/24 Pre-op diagnosis: See indication and findings Procedure & Clinicians Study performed: EGD with biopsy and over the wire dilation Indications: Worsening GE reflux and occasional substernal dysphagia. Rule out mechanical lesion Surgeon: Aicha Ye Procedure Notes Procedure in detail: After informed consent was obtained the patient was placed in left lateral decubitus position. The video upper scope was placed into the oropharynx and with the patient's help swallowed into the esophagus. The esophagus stomach and duodenal were carefully examined. On withdrawal, retroflexed view the GE junction was performed. The scope was removed. The patient tolerated procedure well. Blood loss none Complications none Sedation mac Findings 1. Mid to distal esophagus with mild circumferential folds. Biopsies taken to rule out eosinophilic esophagitis 2. Very mild Schatzki's ring at 38 cm dilation performed with Savary dilator over the wire 51 [place] without difficulty or resistance 3. Scattered erythema in the antrum biopsies taken to rule out Helicobacter Four. Normal duodenal bulb and sweep We will see if this dilation has helped patient at all when we contact in 2 weeks. We will be in touch regarding the biopsies.
[2024-11-21 11:37] VITALS: BP 100/61; PULSE 79; RESP 16; TEMP 36.1; O2SAT 95
[2024-11-21 11:43] VITALS: BP 97/54; PULSE 74; RESP 14; O2SAT 95
--- NOTE | 2024-11-21 11:43 | SUR.OPER ---
Esophagogastroduodenoscope #[id number] used in case.
[2024-11-21 11:49] VITALS: BP 99/60; PULSE 81; RESP 14; O2SAT 96
[2024-11-21 11:52] VITALS: BP 105/67; PULSE 90; RESP 18; O2SAT 96
== END 2024-11-21 12:05 | disposition home or self-care (01) ==
PROVIDERS: Family Provider Internal Medicine; PCP Internal Medicine; Referring Provider Internal Medicine Gastroenterology; Visit Provider Internal Medicine Gastroenterology
PROC: 0DJ08ZZ Inspection of Upper Intestinal Tract, Via Natural or Artificial Opening Endoscopic (ICD-10-PCS; CPT 43248; principal; 2024-11-21 11:30)
DX: K22.2 Esophageal obstruction (principal); K21.9 Gastro-esophageal reflux disease without esophagitis; R13.10 Dysphagia, unspecified; N18.31 Chronic kidney disease, stage 3a; E78.5 Hyperlipidemia, unspecified; Z86.73 Personal history of transient ischemic attack (TIA), and cerebral infarction without residual deficits; E66.9 Obesity, unspecified
CPT/HCPCS: 43248; 43239; J2704

== ENCOUNTER → 2025-04-24 15:17 | Outpatient (CLI) | payer MEDICARE, OTHER, SELFPAY ==
[2025-04-24 16:48] LABS: Alanine Aminotransferase 49 IU/L (<35); Albumin 4.9 g/dL (3.5-5.0); Alkaline Phosphatase 96 U/L (38-126); Aspartate Aminotransferase 41 IU/L (14-36); BUN Creatinine Ratio 24.4 (6-22); Bilirubin Total 1.8 mg/dL (0.2-1.3); Blood Urea Nitrogen 32 mg/dL (7-17); Calcium 10.4 mg/dL (8.4-10.2); Carbon Dioxide 23 mmol/L (22-32); Chloride 105 mmol/L (98-107); Cholesterol 237 mg/dL (140-199); Estimated Glomerular Filt Rate 43 mL/min (>60); Globulin 2.5 g/dL (1.7-4.1); Glucose 86 mg/dL (70-99); HDL Cholesterol 79 mg/dL (40-60); HEMOLYSIS < 15 (0-50); LDL Cholesterol Calculated 126 mg/dL (<100); Lactate Dehydrogenase 212 U/L (120-246); Potassium 4.9 mmol/L (3.4-5.1); Sodium 139 mmol/L (137-145); Total Protein 7.4 g/dL (6.3-8.2); Triglycerides 158 mg/dL (35-150)
[2025-04-24 16:57] LABS: Hematocrit 43.3 % (36-46); Hemoglobin 14.7 g/dL (12.0-16.0); Mean Corpuscular HGB Conc 33.9 % (30-36); Mean Corpuscular Hemoglobin 29.8 PG (26-34); Platelet Count 192 X10^3/uL (150-400); Red Blood Cell Count 4.91 X10^6/uL (4.0-5.2); Red Cell Distribution Width 13.4 % (11.6-14.8); White Blood Cell Count 4.9 X10^3/uL (4.5-11.0)
[2025-04-25 22:40] LABS: HBsAg Screen Negative (Negative); Hepatitis A Antibody IgM Negative (Negative); Hepatitis B Core Antibody IgM Negative (Negative); Hepatitis C Antibody Non Reactive (Non Reactive)
== END ==
PROVIDERS: Family Provider Internal Medicine; PCP Internal Medicine; Referring Provider Internal Medicine; Visit Provider Internal Medicine
DX: C85.19 Unspecified B-cell lymphoma, extranodal and solid organ sites (principal); N18.31 Chronic kidney disease, stage 3a; E78.2 Mixed hyperlipidemia; Z20.9 Contact with and (suspected) exposure to unspecified communicable disease; B17.9 Acute viral hepatitis, unspecified
CPT/HCPCS: 36415; 80053; 80061; 80074; 83615; 85027

== ENCOUNTER → 2025-05-17 10:01 | Outpatient (CLI) | payer MEDICARE, OTHER, SELFPAY | LOC: CAR 10:03 | PROVIDERS: Family Provider Internal Medicine; PCP Internal Medicine; Referring Provider Internal Medicine; Visit Provider Internal Medicine | DX: R00.2 Palpitations (principal) | CPT/HCPCS: 93246 ==

== ENCOUNTER → 2025-05-22 14:15 | Outpatient (CLI) | payer MEDICARE, OTHER, SELFPAY ==
--- NOTE | 2025-05-22 14:18 | DI.MG.S_ITS ---
MM screening mammo BI: 05/22/2025. BI-RADS: 1 CLINICAL: 74-year old female for bilateral screening mammogram. Tyrer-Cuzick lifetime risk of 7.8%. Current reported family history of breast cancer: mother. PRIOR EXAMS 04/07/2024, Outside priors [facility]BI - 04/11/2021. MAMMOGRAPHY TECHNIQUE: 2D and 3D (tomosynthesis) digital mammographic views obtained, with additional images as needed for full coverage. Current study was also evaluated with a Computer Aided Detection (CAD) system. DENSITY B. There are scattered areas of fibroglandular density. MAMMOGRAPHY FINDINGS Bilateral: No suspicious mass, asymmetry, microcalcification, or other abnormality seen. No significant change from comparison. IMPRESSION: * No evidence of malignancy. RECOMMENDATIONS Bilateral * Annual screening mammography. OVERALL ASSESSMENT CATEGORY BI-RADS-1: Negative. The [employer] recommends annual screening mammography beginning at age 40 for women with average risk of breast cancer. ELECTRONICALLY SIGNED: Shelley Bello M.D. on 05/22/2025 at 04:55:39 PM PT Interpreting Station ID: [id number]
== END ==
PROVIDERS: Family Provider Internal Medicine; PCP Internal Medicine; Referring Provider Internal Medicine; Visit Provider Internal Medicine
DX: Z12.31 Encounter for screening mammogram for malignant neoplasm of breast (principal); Z80.3 Family history of malignant neoplasm of breast
CPT/HCPCS: 77063; 77067